=== PATIENT | female | born 1945 | race Caucasian/White ===

== ENCOUNTER → 2023-10-29 12:15 | Outpatient (REF) | payer MEDICARE, OTHER, SELFPAY | LOC: WDC 12:15 | PROVIDERS: ATTENDING PHYSICIAN Physician Assistant Medical; FAMILY PHYSICIAN Family Medicine | DX: Z12.31 Encounter for screening mammogram for malignant neoplasm of breast (principal) | CPT/HCPCS: 77063; 77067 ==

== ENCOUNTER → 2023-11-19 09:22 | Outpatient (REF) | payer MEDICARE, OTHER, SELFPAY ==
[2023-11-19 10:04] LABS: % Basophils 0.4 % (0-2); % Eosinophils 1.8 % (0-6); % Immature Granulocytes 0.4 % (0-0.5); % Lymphocytes 11.2 % (20.5-51.1); % Monocytes 8.5 % (1.7-9.3); % Neutrophils 77.7 % (42.2-75.2); Absolute Eosinophils 0.1 10^3/uL (0-0.7); Absolute Lymphocytes 0.6 10^3/uL (1.2-3.4); Absolute Monocytes 0.5 10^3/uL (0.1-0.6); Absolute Neutrophils 4.3 10^3/uL (1.4-6.5); Hematocrit 45.3 % (37.0-47.0); Mean Corp Hgb Conc. 33.1 g/dL (33.0-37.0); Mean Corpuscular Hgb 32.1 pg (27.0-31.0); Mean Corpuscular Volume 96.8 fL (81.0-99.0); Mean Platelet Volume 9.2 fL (7.4-10.4); Nucleated Red Blood Cells % 0 %; Platelet Count 152 10^3/uL (130-400); Red Blood Cell Count 4.68 10^6/uL (4.20-5.40); Red Cell Dist. Width 13.9 % (11.5-14.5); White Blood Cell Count 5.6 10^3/uL (4.8-10.8)
[2023-11-19 11:02] LABS: ALT (SGPT) 20 U/L (0-35); AST (SGOT) 30 U/L (14-36); Albumin 4.4 g/dl (3.5-5.0); Alkaline Phosphatase 122 U/L (38-126); Blood Urea Nitrogen 22 mg/dl (7-17); Calcium 10.2 mg/dl (8.4-10.2); Carbon Dioxide 33 mmol/L (22-30); Chloride 102 mmol/L (98-107); Glucose 91 mg/dl (70-99); HDL Cholesterol 69 mg/dl; LDL Cholesterol, Calculated 76 mg/dl; Sodium 137 mmol/L (135-145); Total Bilirubin 0.9 mg/dl (0.2-1.3); Total Cholesterol 165 mg/dl (50-199); Total Protein 7.6 g/dl (6.3-8.2); Triglyceride 101 mg/dl (10-149); Very Low Density Lipoprotein 20 mg/dl (0-30); eGFR > 60.00
[2023-11-20 11:15] LABS: Glycohemoglobin (HgbA1c) 6.3 % (4.0-5.6)
== END ==
LOC: REG 09:22
PROVIDERS: ATTENDING PHYSICIAN Family Medicine
DX: R73.03 Prediabetes (principal); I10 Essential (primary) hypertension; E78.2 Mixed hyperlipidemia; C50.912 Malignant neoplasm of unspecified site of left female breast
CPT/HCPCS: 36415; 80053; 80061; 83036; 85025

== ENCOUNTER → 2024-05-26 09:28 | Outpatient (REF) | payer MEDICARE, OTHER, SELFPAY ==
[2024-05-26 11:45] LABS: Glycohemoglobin (HgbA1c) 5.8 % (4.0-5.6)
[2024-05-26 12:08] LABS: ALT (SGPT) 15 U/L (0-35); AST (SGOT) 25 U/L (14-36); Albumin 4.4 g/dl (3.5-5.0); Alkaline Phosphatase 89 U/L (38-126); Blood Urea Nitrogen 17 mg/dl (7-17); Calcium 9.8 mg/dl (8.4-10.2); Carbon Dioxide 26 mmol/L (22-30); Chloride 103 mmol/L (98-107); Glucose 97 mg/dl (70-99); HDL Cholesterol 56 mg/dl; LDL Cholesterol, Calculated 69 mg/dl; Potassium 4.6 mmol/L (3.5-5.1); Sodium 142 mmol/L (135-145); Total Bilirubin 0.5 mg/dl (0.2-1.3); Total Cholesterol 142 mg/dl (50-199); Total Protein 6.9 g/dl (6.3-8.2); Triglyceride 85 mg/dl (10-149); Very Low Density Lipoprotein 17 mg/dl (0-30); eGFR > 60.00
== END ==
LOC: REG 09:28
PROVIDERS: ATTENDING PHYSICIAN Family Medicine; OTHER PHYSICIAN Internal Medicine Hematology & Oncology
DX: I10 Essential (primary) hypertension (principal); R73.03 Prediabetes
CPT/HCPCS: 36415; 80053; 80061; 83036

== ENCOUNTER → 2024-08-23 06:16 | Day surgery (SDC) | payer MEDICARE, OTHER, SELFPAY | LOC: GI 06:16 | PROVIDERS: ATTENDING PHYSICIAN Specialist; FAMILY PHYSICIAN Family Medicine | DX: Z12.11 Encounter for screening for malignant neoplasm of colon (principal); Z86.0101 Personal history of adenomatous and serrated colon polyps; K57.30 Diverticulosis of large intestine without perforation or abscess without bleeding; D12.3 Benign neoplasm of transverse colon | CPT/HCPCS: 45385; 45380; 88305 ==

== ENCOUNTER → 2024-08-24 07:29 | Outpatient (REF) | payer MEDICARE, OTHER, SELFPAY | LOC: RAD 07:29 | PROVIDERS: ATTENDING PHYSICIAN Registered Nurse Oncology; FAMILY PHYSICIAN Family Medicine | DX: C50.412 Malignant neoplasm of upper-outer quadrant of left female breast (principal); Z17.0 Estrogen receptor positive status [ER+]; M85.80 Other specified disorders of bone density and structure, unspecified site; M85.89 Other specified disorders of bone density and structure, multiple sites | CPT/HCPCS: 77080 ==

== ENCOUNTER → 2024-11-24 10:08 | Outpatient (REF) | payer MEDICARE, OTHER, SELFPAY ==
[2024-11-24 11:27] LABS: % Basophils 0.4 % (0-2); % Eosinophils 1.3 % (0-6); % Immature Granulocytes 0.4 % (0-0.5); % Monocytes 7.8 % (1.7-9.3); % Neutrophils 76.1 % (42.2-75.2); Absolute Eosinophils 0.1 10^3/uL (0-0.7); Absolute Lymphocytes 0.7 10^3/uL (1.2-3.4); Absolute Monocytes 0.4 10^3/uL (0.1-0.6); Absolute Neutrophils 3.6 10^3/uL (1.4-6.5); Hemoglobin 14.2 g/dL (12.0-16.0); Mean Corp Hgb Conc. 31.6 g/dL (33.0-37.0); Mean Corpuscular Hgb 31.6 pg (27.0-31.0); Mean Platelet Volume 9.6 fL (7.4-10.4); Nucleated Red Blood Cells % 0 %; Platelet Count 157 10^3/uL (130-400); Red Cell Dist. Width 14.3 % (11.5-14.5); White Blood Cell Count 4.7 10^3/uL (4.8-10.8)
[2024-11-24 12:03] LABS: ALT (SGPT) 17 U/L (0-35); AST (SGOT) 25 U/L (14-36); Albumin 4.6 g/dl (3.5-5.0); Alkaline Phosphatase 101 U/L (38-126); Blood Urea Nitrogen 22 mg/dl (7-17); Calcium 10.7 mg/dl (8.4-10.2); Carbon Dioxide 33 mmol/L (22-30); Chloride 100 mmol/L (98-107); Glucose 101 mg/dl (70-99); HDL Cholesterol 62 mg/dl; LDL Cholesterol, Calculated 79 mg/dl; Potassium 4.7 mmol/L (3.5-5.1); Sodium 140 mmol/L (135-145); Total Bilirubin 0.8 mg/dl (0.2-1.3); Total Cholesterol 156 mg/dl (50-199); Total Protein 7.2 g/dl (6.3-8.2); Triglyceride 77 mg/dl (10-149); Very Low Density Lipoprotein 15 mg/dl (0-30); eGFR > 60.00
[2024-11-24 13:07] LABS: Glycohemoglobin (HgbA1c) 5.8 % (4.0-5.6)
== END ==
LOC: REG 10:08
PROVIDERS: ATTENDING PHYSICIAN Family Medicine
DX: I10 Essential (primary) hypertension (principal); E78.2 Mixed hyperlipidemia; R73.03 Prediabetes; C50.912 Malignant neoplasm of unspecified site of left female breast
CPT/HCPCS: 36415; 80053; 80061; 83036; 85025

== ENCOUNTER → 2024-12-23 10:24 | Outpatient (REF) | payer MEDICARE, OTHER, SELFPAY | LOC: WDC 10:24 | PROVIDERS: ATTENDING PHYSICIAN Physician Assistant Medical; FAMILY PHYSICIAN Family Medicine | DX: Z12.31 Encounter for screening mammogram for malignant neoplasm of breast (principal) | CPT/HCPCS: 77063; 77067 ==

== ENCOUNTER 2025-01-17 08:44 | Outpatient (RCR) | payer MEDICARE, OTHER, SELFPAY | END 2025-01-17 23:59 | disposition home or self-care (01) | LOC: RPT 08:44 | PROVIDERS: ATTENDING PHYSICIAN Physician Assistant Medical; FAMILY PHYSICIAN Family Medicine | DX: I97.2 Postmastectomy lymphedema syndrome (principal); C50.412 Malignant neoplasm of upper-outer quadrant of left female breast; L90.5 Scar conditions and fibrosis of skin; Z17.0 Estrogen receptor positive status [ER+] | CPT/HCPCS: 97110; 97140; 97162; 97530 ==

== ENCOUNTER 2025-02-03 07:47 | Outpatient (RCR) | payer MEDICARE, OTHER, SELFPAY | END 2025-02-03 08:57 | disposition home or self-care (01) | LOC: RPT 07:47 | PROVIDERS: ATTENDING PHYSICIAN Physician Assistant Medical; FAMILY PHYSICIAN Family Medicine | DX: I97.2 Postmastectomy lymphedema syndrome (principal); C50.412 Malignant neoplasm of upper-outer quadrant of left female breast; L90.5 Scar conditions and fibrosis of skin; Z17.0 Estrogen receptor positive status [ER+] | CPT/HCPCS: 97110; 97140; 97530 ==